=== PATIENT | male | born 1985 | race Hispanic/Latino ===

== ENCOUNTER 2022-05-21 20:05 | Emergency (ER) | payer SELFPAY ==
[2022-05-21] MEDS ORDERED: HYDROcodone/Acetaminophen 5/325 mg Tablet ONE (20:53)
== END 2022-05-21 22:41 | disposition home or self-care (01) ==
LOC: CSHERS 20:05
DX: S93.401A Sprain of unspecified ligament of right ankle, initial encounter (principal); X50.1XXA Overexertion from prolonged static or awkward postures, initial encounter; Y99.0 Civilian activity done for income or pay